=== PATIENT | male | born 1975 | race Caucasian/White ===

== ENCOUNTER 2023-10-08 10:58 | Outpatient (CLI) | payer BC, SELFPAY ==
[2023-10-08 14:12] LABS: Strep A DNA Probe* NOT DETECTED (Not Detectd)
[2023-10-08 16:07] LABS: SARS PCR* Negative SARS-CoV-2 (Negative)
== END 2023-10-08 10:59 | disposition home or self-care (01) ==
PROVIDERS: Visit Provider Nurse Practitioner Family
DX: J02.9 Acute pharyngitis, unspecified (principal)
CPT/HCPCS: 87635; 87651